=== PATIENT | female | born 2000 | race Caucasian/White ===

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

== ENCOUNTER 2024-10-19 05:27 | Inpatient (IN) ==
--- NOTE | 2024-10-07 13:12 | Anesthesiology Consultation ---
Date of Service October 07, 2024 Assessment & Plan Chart Review Chart Review: Acceptable Risk for Surgery and Patient NOT seen in Pre Admission Testing Infectious Disease screening: Per PAT nursing assessment on 10/07/24, No known infectious disease contacts in past 10 days or current infectious disease symptoms. No recent travel outside the country. History Surgery Operation Date: 10/19/24 07:30 Proposed Procedures p Section (Delivery of Baby Through Abdominal Incision) - Evelyn Savage MD Height/Weight Height: 5 ft 5 in Weight: 98.43 kg Allergies Allergy/AdvReac Type Severity Reaction Status Date / Time No Known Drug Allergies Allergy Verified 10/07/24 12:27 Medications Home Medications Medication Instructions Recorded Confirmed Last Taken famotidine 40 mg tablet 40 mg PO DAILY 07/04/24 10/07/24 07/04/24 vit no.133-ferrous 1 tab PO QAM 07/04/24 10/07/24 07/04/24 fumarate 28 mg-folic acid 800 mcg tablet () ondansetron 4 mg disintegrating 4 mg PO Q6H PRN nausea and 07/05/24 10/07/24 Unknown tablet vomiting #14 tabs acetone (urine) test (Ketone Urine #50 ea 08/27/24 10/07/24 Unknown Test strips) blood sugar diagnostic (OneTouch #150 ea 08/27/24 10/07/24 Unknown Verio test strips) blood-glucose meter (OneTouch #1 ea 08/27/24 10/07/24 Unknown Verio Reflect Meter) lancets 33 gauge (OneTouch Delica #150 ea 08/27/24 10/07/24 Unknown Plus Lancet) pen needle, diabetic 32 gauge x #100 ea 09/14/24 10/07/24 Unknown /32" (BD Ultra-Fine Dolly Pen Needle) insulin NPH isoph U-100 human 100 22 unit subcut .at bed time 10/07/24 10/07/24 Unknown unit/mL (3 mL) subcutaneous pen (Novolin N FlexPen) omeprazole magnesium 20 mg 20 mg PO QAM 10/07/24 10/07/24 Unknown tablet,delayed release (Prilosec OTC) valacyclovir 1 gram tablet 1,000 mg PO QAM 10/07/24 10/07/24 Unknown (Valtrex) Past Medical History Medical History (Updated 10/07/24 @ 13:08 by Carolina Hensley PA-C) Acne Generalized anxiety disorder no longer on meds Genital herpes GERD (gastroesophageal reflux disease) Gestational diabetes using insulin Polyhydramnios affecting per pt, last US was normal > mild Varicella vaccination Past Family History Family History Mother No problems noted. Grandfather (Paternal) Hypertension Grandmother (Maternal) FH: kidney cancer Denies family history of Ovarian cancer Breast cancer Colorectal cancer Past Surgical History Surgical History H/O wisdom tooth extraction Social History Smoking Status: Former smoker tobacco type: e-cigarettes Do You Dip or Chew Tobacco: No Smoking End Date: within 9 mos Hx Alcohol Use: No Hx Substance Use: No substance use type: does not use
--- NOTE | 2024-10-16 13:29 | History & Physical Report ---
Date of Service October 16, 2024 Assessment & Plan (1) Insulin controlled gestational diabetes mellitus (GDM) during : (2) Polyhydramnios affecting in third trimester: (3) Supervision of normal first : (4) Genital herpes: Plan -reviewed last growth US, projects out to >4500g currently so would offer elective CS and pt desires to proceed, understanding limitations of US -Discussed indications, risks, benefits, alternatives with risks including infection, bleeding, injury to adjacent structures (bowel, bladder, ureters, blood vessels, nerves, baby), possible need for blood transfusion and/or life saving hysterectomy, VTE. Consent reviewed in detail w/ pt and signed after all questions answered to her satisfaction. History of Present Illness Chief Complaint: preop Primary Care Provider: Marifer Meyer MD 24 yo G1 at 39 wga presents for preop to planned primary CS for suspected LGA. 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 regular cycles hx HSV Allergies Allergy/AdvReac Type Severity Reaction Status Date / Time No Known Drug Allergies Allergy Verified 10/16/24 10:13 Home Medications Medication Instructions Recorded Confirmed Type famotidine 40 mg tablet 40 mg PO DAILY 07/04/24 10/16/24 History vit no.133-ferrous 1 tab PO QAM 07/04/24 10/16/24 History fumarate 28 mg-folic acid 800 mcg tablet () ondansetron 4 mg disintegrating 4 mg PO Q6H PRN nausea and 07/05/24 10/16/24 Rx tablet vomiting #14 tabs acetone (urine) test (Ketone Urine #50 ea 08/27/24 10/16/24 Rx Test strips) blood sugar diagnostic (OneTouch #150 ea 08/27/24 10/16/24 Rx Verio test strips) blood-glucose meter (OneTouch #1 ea 08/27/24 10/16/24 Rx Verio Reflect Meter) lancets 33 gauge (OneTouch Delica #150 ea 08/27/24 10/16/24 Rx Plus Lancet) pen needle, diabetic 32 gauge x #100 ea 09/14/24 10/16/24 Rx 5/32" (BD Ultra-Fine Dolly Pen Needle) insulin NPH isoph U-100 human 100 22 unit subcut .at bed time 10/07/24 10/16/24 History unit/mL (3 mL) subcutaneous pen (Novolin N FlexPen) omeprazole magnesium 20 mg 20 mg PO QAM 10/07/24 10/16/24 History tablet,delayed release (Prilosec OTC) valacyclovir 1 gram tablet 1,000 mg PO QAM 10/07/24 10/16/24 History (Valtrex) Patient History Medical History (Updated 10/07/24 @ 13:08 by Carolina Hensley PA-C) GERD (gastroesophageal reflux disease) Genital herpes Polyhydramnios affecting per pt, last US was normal > mild Gestational diabetes using insulin Varicella vaccination Generalized anxiety disorder no longer on meds Acne Surgical History H/O wisdom tooth extraction Family History Mother No problems noted. Grandfather (Paternal) Hypertension Grandmother (Maternal) FH: kidney cancer Denies family history of Ovarian cancer Breast cancer Colorectal cancer Social History Smoking Status: Former smoker Tobacco Type: Cigarettes Second Hand Exposure: No; Do You Dip or Chew Tobacco: No; Hx Alcohol Use: No Hx Substance Use: No Preferred Language: [place] Communication Ability: Effective Policy Officer Required: No Beliefs That Will Affect Care: None marital status: Single marital status details: Romero Maguire (24) [phone] Current Living Situation: Significant Other Current Living Situation Comment: lives with Fob, dogs, cats-FOB changing litter current occupational status: employed current occupation: [employer] Feels Safe at Home: Yes Assistive Devices: None Physical Exam Respiratory: normal respiratory effort, lungs clear to auscultation Genitourinary: NST reactive, DVP 9 Results & Data Laboratory Results OB Labs: Blood Type O Positive 03/20/24 Antibody Screen NEGATIVE 03/20/24 Hgb 11.2 g/dl (12.0-16.0) L 07/31/24 Hct 33.7 % (37.0-47.0) L 07/31/24 MCV 83.4 fL (80.0-100.0) 07/04/24 Plt Count 188 K/uL (130-400) 07/04/24 Rubella IgG Antibody Immune (Immune) 03/20/24 Treponema pallidum Ab Negative (Negative) 07/31/24 Hep Bs Antigen Negative (Negative) 03/20/24 Hepatitis C Antibody Negative (Negative) 03/20/24 HIV 1&2 Ab/P24 Ag 4thGn Negative (Negative) 03/20/24 Glucose 1 Hr 50 gm 155 mg/dl (70-130) H 07/31/24 OB Optional Labs: Chlamydia trachomatis RNA Not Detected (NotDetected) 03/20/24 Neisseria gonorrhoeae RNA Not Detected (NotDetected) 03/20/24 Labs Reviewed: Declines genetics--mln Diagnostic Findings 10/02 EFW 4308g, ant plac Coding Level of Care Code None Diagnoses Insulin controlled gestational diabetes mellitus (GDM) during O24.414 Polyhydramnios affecting in third trimester O40.3XX0 Supervision of normal first Z34.00 Genital herpes A60.00
[2024-10-19 06:02] LABS: Basophils # (auto) 0.02 K/uL (0.00-0.20); Basophils % (auto) 0.2 %; Eosinophils # (auto) 0.04 K/uL (0.00-0.50); Eosinophils % (auto) 0.5 %; Hemoglobin 10.3 g/dl (12.0-16.0); Immature Granulocytes # (auto) 0.13 K/uL (0.01-0.20); Immature Granulocytes % (auto) 1.6 %; Lymphocytes # (auto) 1.39 K/uL (1.20-3.40); Lymphocytes % (auto) 17.1 %; Mean Corpuscular Hemoglobin 23.5 pg (25.0-34.0); Mean Corpuscular Hgb Conc 31.2 g/dL (32.0-36.0); Mean Corpuscular Volume 75.3 fL (80.0-100.0); Mean Platelet Volume 9.7 fL (9.4-12.4); Monocytes # (auto) 0.84 K/uL (0.11-0.59); Monocytes % (auto) 10.3 %; Neutrophils # (auto) 5.71 K/uL (1.40-6.50); Neutrophils % (auto) 70.3 %; Platelet Count 165 K/uL (130-400); RDW Coefficient of Variation 16.1 % (11.5-14.5); RDW Standard Deviation 44.1 fL (36.4-46.3); Red Blood Count 4.38 M/uL (4.20-5.40); White Blood Count 8.13 K/ul (4.8-10.8)
[2024-10-19] MEDS: LACTATED RINGER'S 1,000 ML IV SCH (06:04)
[2024-10-19] MEDS ORDERED: SODIUM CHLORIDE 0.9% 50 ML IV PRN (06:30)
[2024-10-19] MEDS ORDERED: SODIUM CHLORIDE 0.9% 100 ML IV PRN (06:30)
[2024-10-19] MEDS: ACETAMINOPHEN 500 MG TAB PO SCH (06:33)
[2024-10-19] MEDS ORDERED: OXYTOCIN 10 UNITS/ML VIAL ONE (06:47)
[2024-10-19] MEDS ORDERED: PHENYLEPHRINE 100MCG/ML 5ML SYR ONE (06:47)
[2024-10-19] MEDS ORDERED: PHENYLEPHRINE HCL 25 MG/250 ML NSS IV ONE (06:47)
[2024-10-19] MEDS ORDERED: ONDANSETRON INJ 2 MG/ML 2 ML VIAL ONE (06:50)
[2024-10-19] MEDS ORDERED: DEXAMETHASONE SOD INJ 4 MG/ML VIAL ONE (06:50)
[2024-10-19] MEDS ORDERED: fentaNYL citrate PF 100 MCG/2 ML VIAL ONE (06:52)
[2024-10-19] MEDS ORDERED: MoRPHine SULFATE PF 1 MG/ML 10 ML AMP/VIAL ONE (06:52)
[2024-10-19] MEDS: CITRIC ACID/SODIUM CITRATE 15 ML UDC PO SCH (07:11)
--- NOTE | 2024-10-19 07:25 | History & Physical Bridge Note ---
Date of Service October 19, 2024 History & Physical Bridge Note I have examined the patient, reviewed the History & Physical and in the interval since the performance of the History & Physical I have noted the following changes of clinical significance: no changes noted
[2024-10-19] MEDS: ceFAZolin 3,000 MG/72.5 ML BAG IV SCH (07:30)
[2024-10-19] MEDS ORDERED: diphenhydrAMINE 50 MG/ML VIAL ONE (07:37)
[2024-10-19] MEDS ORDERED: NALOXONE HCL 0.4 MG/1 ML VIAL/CARP IV PRN (08:17)
[2024-10-19] MEDS ORDERED: ONDANSETRON INJ 2 MG/ML 2 ML VIAL IV PRN ×2 (08:17→09:27)
[2024-10-19] MEDS ORDERED: NALOXONE HCL 1 MG in SODIUM CHLORIDE 0.9% 1,000 ML IV PRN (08:17)
[2024-10-19] MEDS ORDERED: oxyCODONE HCL IR 5 MG TAB (IMMEDIATE RELEASE) PO PRN ×2 (08:17→09:27)
[2024-10-19] MEDS ORDERED: ePHEDrine sulfate 50 MG/ML AMP IV PRN (08:17)
[2024-10-19] MEDS ORDERED: NALOXONE HCL 0.08 MG in SYRINGE 1.8 ML IV PRN (08:17)
[2024-10-19] MEDS ORDERED: PROMETHAZINE 6.25 MG/50.25 ML BAG IV PRN (08:17)
[2024-10-19] MEDS ORDERED: NO NARCOTICS OR SEDATIVES SCH (08:30)
[2024-10-19] MEDS ORDERED: DC INTRASPINAL MORPHINE SCH (08:30)
--- NOTE | 2024-10-19 08:54 | Post Operative Brief Note ---
Immediate Post Op Note Date of Surgery October 19, 2024 Pre & Post Diagnosis Operation Date: 10/19/24 07:30 Pre-Op Diagnosis: 1. IUP at 39 Weeks 2. Suspected LGA 3. GDM - Insulin Post-Op Diagnosis: Same I identified the patient and participated in the time-out.: Yes Procedure Operation Date: 10/19/24 07:30 Actual Procedures p Section in LD; Primary Lower Uterine Transverse Section for the of a live girl infant at 0810. (Bilateral) - Evelyn Savage MD Surgeon Evelyn Savage MD Television Reporter MD [place] Quantitative Blood Loss (QBL) 743 Findings Consistent with Post-Op Diagnosis Normal appearing uterus, bilateral fallopian tubes and ovaries. Viable female weighing 10lbs 3oz, APGARs 8 and 8 at 1 and 5 minutes, respectively Fluids Cancino draining clear urine Specimens Specimen Description: 1. Placenta: Hold 2. Cord Blood Obtained Drains Cancino Catheter (Catheter inserted without diffivulty by SANJAY Nance with assistance. Patent and draining clear yellow urine. ) Anesthesia Type Spinal Complications none Disposition Accompanied Patient To Recovery: Yes Disposition: L&D
[2024-10-19] MEDS: OXYTOCIN 20 UNITS/LR 1,002 ML IV SCH (09:00)
--- NOTE | 2024-10-19 09:00 | Anesthesiology Progress Note ---
Date of Service October 19, 2024 Anesthesia Post Procedure Vital Signs Vital Signs: Temp Pulse Resp BP Pulse Ox 10/19/24 08:56 82 144/56 H 10/19/24 08:55 94 H 100 10/19/24 05:37 36.8 C 110 H 18 144/89 H 10/19/24 05:36 110 H 144/89 H Transfer of Care Handoff Completed per policy Notes Mental Status: alert / awake / arousable and participated in evaluation Patient Amnestic to Procedure: No Nausea / Vomiting: adequately controlled Pain: adequately controlled Airway Patency, RR, SpO2: stable & adequate BP & HR: stable & adequate Hydration State: stable & adequate Neuraxial Anesthesia: was administered and sensory block is resolving Anesthetic Complications: no major complications apparent and Pt Satisfied with anesthetic care
[2024-10-19] MEDS ORDERED: SODIUM CHLORIDE 0.9% 1,000 ML IV SCH (09:27)
[2024-10-19] MEDS ORDERED: diphenhydrAMINE 50 MG/ML VIAL IV PRN (09:27)
[2024-10-19] MEDS ORDERED: MAGNESIUM HYDROXIDE SUSP 30 ML UDC PO PRN (09:27)
[2024-10-19] MEDS ORDERED: LACTATED RINGER'S 1,000 ML IV SCH (09:27)
[2024-10-19] MEDS ORDERED: HYDROCORTISONE ACETATE 25 MG SUPP PR PRN (09:27)
[2024-10-19] MEDS ORDERED: diphenhydrAMINE Capsule 25 MG CAP PO PRN (09:27)
[2024-10-19] MEDS ORDERED: HYDROmorphone INJ 0.5 MG/0.5 ML SYR IV PRN (09:27)
[2024-10-19] MEDS ORDERED: CALCIUM CARBONATE 500 MG CHEWABLE TAB PO PRN (09:27)
[2024-10-19] MEDS ORDERED: PROMETHAZINE 12.5 MG/50.5 ML BAG IV PRN (09:27)
[2024-10-19] MEDS ORDERED: SENNA 8.6 MG TAB PO PRN (09:27)
[2024-10-19] MEDS ORDERED: BENZOCAINE 20% SPRY 85 APPLN/85 GM CAN EXT PRN (09:27)
--- NOTE | 2024-10-19 09:40 | Operative Report ---
Post Operative Report Pre & Post Diagnosis Operation Date: 10/19/24 07:30 Pre-Op Diagnosis: 1. IUP at 39 Weeks 2. Suspected LGA 3. GDM - Insulin 4. Polyhydramnios Post-Op Diagnosis: Same I identified the patient and participated in the time-out.: Yes Procedure Operation Date: 10/19/24 07:30 Actual Procedures p Section in LD; Primary Lower Uterine Transverse Section for the of a live girl infant at 0810. (Bilateral) - Evelyn Savage MD Surgeon Evelyn Savage MD Gusset Ripper MD T[place] Quantitative Blood Loss (QBL) 743 Findings Consistent with Post-Op Diagnosis Normal appearing uterus, bilateral fallopian tubes and ovaries. Viable female weighing 10lbs 3oz, APGARs 8 and 8 at 1 and 5 minutes, respectively Specimens 1. Placenta: Hold 2. Cord Blood Obtained Drains Cancino draining clear urine Anesthesia Type Spinal Complications none Disposition Accompanied Patient To Recovery: Yes Disposition: L&D Indications 24 yo G1 at 39+ wga presents for planned elective primary CS due to suspected LGA >4500g at 39 wks in the setting of A2GDM, polyhydramnios Description of Procedure The patient was taken to the operating room after consents were ensured. The patient was properly identified. Spinal anesthesia was obtained without difficulty. The patient was placed in a dorsal supine position with left lateral tilt, then prepped and draped in normal sterile fashion. Surgical time out was performed. Antibiotics were given for prophylaxis. Anesthesia was tested to ensure adequate surgical levels. Pfannenstiel skin incision was performed and carried down to the underlying fascia with a knife. The fascia was then nicked in the midline and extended laterally with pickups and Pierre scissors. Superior portion of the fascia was grasped with Kochers x2 and elevated off the underlying rectus muscles using blunt dissection. Inferior portion of the fascia was then grasped with Kary clamps x2 and also elevated off the underlying muscles with blunt dissection. Midline was identified. The peritoneum was then entered and extended to provide adequate room for delivery of baby. A hand was inserted into the abdomen, uterus was noted to be clear of adhesions. Bladder blade was inserted, bladder flap was created in the usual fashion. A low transverse uterine incision was made in the uterus and extended bluntly in a superior to inferior fashion. Amniotomy was made with clear fluid at the time of rupture. head was grasped and elevate d to the hysterotomy in an atraumatic fashion, however could not be delivered through. Vacuum was called for and applied to the flexion point with care to avoid entrapping maternal tissue. Vacuum increased to green zone and with one pull, head delivered atraumatically in ANNE position, no nuchal cord. Vacuum was removed. Remainder of the body delivered without incident. Nose and mouth were bulb suctioned on the surgical field. The cord was double clamped and cut, baby was handed off to awaiting pediatrics staff. Cord segment and blood were obtained. Placenta was then expressed from the uterus. The uterus was exteriorized. Several passes were made inside the uterus to remove the remaining membranes. Attention was then turned to the hysterotomy, which was then closed with a running locked suture of 0 Vicryl on a CTX needle. An imbricating layer was then performed using 0-Monocryl. There was noted to be good hemostasis. The posterior cul-de-sac was then inspected and cleaned of clot and debris. The hysterotomy was again inspected and noted to be hemostatic. The uterus was returned to the abdomen. The right and left pericolic gutters were cleaned of all clot and debris. The hysterotomy was again noted to be hemostatic. Space of Retzius was noted to be hemostatic. The fascia was then closed with a running suture of 0 Vicryl on a CT1 needle. Subcutaneous tissue was copiously irrigated and noted to be hemostatic. Subcutaneous tissue was re-approximated using 2-0 plain gut. The skin was then closed with a running suture of 3-0 Monocryl in a subcuticular fashion. At termination of the procedure, fundal pressure was applied and a moderate amount of lochia was expressed. Pressure dressing was applied to the patient. She tolerated the procedure well. All sponge, needle, instrument counts were correct x 2. I attest to the content of the Intraoperative Record and any orders documented therein. Any exceptions are noted below. OB Procedure Charges 27227
[2024-10-19] MEDS: KETOROLAC 30 MG/ML VIAL IV SCH (09:50)
[2024-10-19] MEDS: HYDROmorphone INJ 0.5 MG/0.5 ML SYR IV PRN (10:58)
[2024-10-19] MEDS: MoRPHine SULFATE PF 1 MG/ML 10 ML AMP/VIAL INT SPINAL ONE (11:02)
[2024-10-19] MEDS: DIPHTHER/TETAN/PERTUS Vaccine (Tdap, Adol/Adult) 0.5mL IM ONE (11:03)
[2024-10-19] MEDS: SIMETHICONE 80 MG CHEW PO SCH (12:55)
[2024-10-19] MEDS: ACETAMINOPHEN 325 MG TAB PO SCH (15:56)
[2024-10-19] MEDS: diphenhydrAMINE 50 MG/ML VIAL IV PRN (15:57)
[2024-10-19] MEDS: NALBUPHINE HCL INJ 10 MG/ML AMP IV PRN (17:23)
[2024-10-19] MEDS: DOCUSATE SODIUM 100 MG CAP PO SCH (20:53)
[2024-10-20] MEDS ORDERED: HYDROmorphone INJ 0.5 MG/0.5 ML SYR IV PRN (02:17)
[2024-10-20] MEDS ORDERED: diphenhydrAMINE Capsule 25 MG CAP PO PRN (02:17)
[2024-10-20] MEDS ORDERED: diphenhydrAMINE 50 MG/ML VIAL IV PRN (02:17)
[2024-10-20] MEDS ORDERED: ONDANSETRON INJ 2 MG/ML 2 ML VIAL IV PRN (02:17)
[2024-10-20] MEDS ORDERED: PROMETHAZINE 12.5 MG/50.5 ML BAG IV PRN (02:17)
--- NOTE | 2024-10-20 07:14 | Obstetrical Progress Note ---
Date of Service October 20, 2024 Assessment & Plan (1) state: Plan: 24yo ppd 1 s/p for macrosomia Feeling well today, VSS Continue care Encourage ambulation and bottle feeds as tolerated D/c in the next few days Followup with Dr. Robertson in 6wks Admission and Anticipated Discharge Date Admission Date: October 19, 2024 Supervising Physician Co-Signing Physician Notes Resident Physician Supervision Note: I interviewed and examined the patient. Discussed with Dr. Salgado and agree with findings and plan as documented in the note. Any exceptions or clarifications are listed here: POD1 s/p pLTCS, doing well. VSS, exam benign. Dressing c/d/i. Continue routine care Documented By: Evelyn Savage MD Subjective 24yo ppd 1 s/p for macrosomia Ambulation: ambulating normally Voiding: urinating, no BM yet Passing Gas: no Diet Tolerance: regular Lochia: Small Feeding Type: breast and bottle, no concerns at this time doing well this morning- feeling sore but otherwise denies any symptoms of lightheadedness, dizziness, palpitations Physical Exam Physical Exam: Constitutional: WD/WN, vitals as above Psychiatric: A&Ox3, euthymic GI/abd: low-transverse incision scar healing well with no erythema or swelling, no significant tenderness to palpation, numbness of skin around scar - +BS, fundus firm 1fw+ umbilicus Ext: no LE edema, calves nontender to palpation, wiggles toes Results & Data Vital Signs (Past 12 Hours) Vital Signs Temp Pulse Resp BP Pulse Ox O2 Del Method 10/20/24 03:05 36.7 C 94 H 16 115/75 97 Room Air 10/20/24 02:00 18 98 10/20/24 01:00 16 96 10/20/24 00:19 18 100 10/20/24 00:19 36.6 C 84 18 115/78 100 Room Air 10/19/24 23:05 16 96 10/19/24 22:08 18 98 10/19/24 21:00 18 96 10/19/24 20:00 20 98 10/19/24 19:50 18 100 10/19/24 19:50 36.8 C 78 18 115/74 100 Room Air Resident Activity Tracking Resident Involvement: Resident Care Provided Care Provided: OB Delivery
[2024-10-20 07:27] LABS: Basophils # (auto) 0.03 K/uL (0.00-0.20); Basophils % (auto) 0.3 %; Eosinophils % (auto) 1.1 %; Hematocrit (blood only) 26.4 % (37.0-47.0); Immature Granulocytes # (auto) 0.13 K/uL (0.01-0.20); Immature Granulocytes % (auto) 1.4 %; Lymphocytes # (auto) 1.65 K/uL (1.20-3.40); Mean Corpuscular Hemoglobin 23.1 pg (25.0-34.0); Mean Corpuscular Hgb Conc 30.3 g/dL (32.0-36.0); Mean Corpuscular Volume 76.1 fL (80.0-100.0); Mean Platelet Volume 11.4 fL (9.4-12.4); Monocytes # (auto) 1.19 K/uL (0.11-0.59); Neutrophils # (auto) 6.06 K/uL (1.40-6.50); Neutrophils % (auto) 66.2 %; Platelet Count 146 K/uL (130-400); RDW Coefficient of Variation 16.1 % (11.5-14.5); Red Blood Count 3.47 M/uL (4.20-5.40); White Blood Count 9.16 K/ul (4.8-10.8)
[2024-10-20] MEDS: FERROUS SULFATE 325 MG TAB PO SCH (08:31)
[2024-10-20] MEDS: PRENATAL VITAMIN 1 TAB PO SCH (08:31)
[2024-10-20] MEDS ORDERED: KETOROLAC 30 MG/ML VIAL IV PRN (08:50)
[2024-10-20] MEDS: IBUPROFEN 600 MG TAB PO SCH (09:09)
[2024-10-20] MEDS: oxyCODONE HCL IR 5 MG TAB (IMMEDIATE RELEASE) PO PRN (11:48)
[2024-10-20 16:31] VITALS: O2SAT 99
[2024-10-20] MEDS: bisacodyL 5 MG TABEC PO SCH (20:45)
[2024-10-20 23:26] VITALS: RESP 16
[2024-10-21 06:40] LABS: Hematocrit (blood only) 28.1 % (37.0-47.0); Hemoglobin 8.6 g/dl (12.0-16.0)
--- NOTE | 2024-10-21 07:11 | Obstetrical Progress Note ---
Date of Service October 21, 2024 Assessment & Plan (1) state: All questions were answered incision was inspected and found to be clean dry and intact extremity exam was negative for tenderness patient has no significant depressive symptoms Postoperative from section patient meets discharge criteria as she is ambulating well tolerating an oral diet has minimal bleeding and no extremity pain. Discharge instructions were reviewed and prescriptions were sent to her pharmacy of choice patient advised to call with any concerns and follow-up in the office discussed. Subjective Ambulation: ambulating normally Voiding: no voiding problems Passing Gas:: Yes Diet Tolerance:: regular diet Lochia:: Small Physical Exam Constitutional WD/WN, vitals as above well developed and well nourished Respiratory normal respiratory effort, lungs clear to auscultation normal respiratory effort Cardiovascular RRR, no murmur, no edema Gastrointestinal (Abdomen) normal bowel sounds, soft, nontender, no hepatosplenomegaly Results & Data Vital Signs (Past 12 Hours) Vital Signs Temp Pulse Resp BP O2 Del Method 10/20/24 23:23 97.7 F 85 16 142/91 H Room Air 10/20/24 20:05 97.3 F L 96 H 14 146/93 H Room Air
[2024-10-21 07:41] VITALS: BP 132/84; PULSE 84; TEMP 97.5
[2024-10-21] MEDS ORDERED: bisacodyL 10 MG SUPP PR PRN (08:50)
[2024-10-21] MEDS ORDERED: IBUPROFEN 600 MG TAB PO PRN (08:50)
[2024-10-21] MEDS ORDERED: ACETAMINOPHEN 325 MG TAB PO PRN (14:50)
--- NOTE | 2024-10-22 15:32 | Discharge Summary ---
Date of Service October 22, 2024 Admission HPI Per Admitting Provider 24 yo G1 at 39 wga presents for preop to planned primary CS for suspected LGA. 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 (Bilateral) - Evelyn Savage MD Hospital Course (1) Insulin controlled gestational diabetes mellitus (GDM) during : (2) Polyhydramnios affecting in third trimester: Plan See operative report for details. Postoperative course uncomplicated and she was discharged home on POD2 Coding Level of Care Code None Diagnoses Insulin controlled gestational diabetes mellitus (GDM) during O24.414 Polyhydramnios affecting in third trimester O40.3XX0
== END 2024-10-21 12:30 | disposition home or self-care (01) | DRG 787 ==
LOC: 4S1 05:27 → EDSTATUS 07:30 → 4E2 11:29
DX: Z79.4 Long term (current) use of insulin; A60.09 Herpesviral infection of other urogenital tract; Z87.891 Personal history of nicotine dependence; Z37.0 Single live birth; O24.424 Gestational diabetes mellitus in childbirth, insulin controlled; O98.32 Other infections with a predominantly sexual mode of transmission complicating childbirth; O40.3XX0 Polyhydramnios, third trimester, not applicable or unspecified; O99.62 Diseases of the digestive system complicating childbirth; O36.63X0 Maternal care for excessive fetal growth, third trimester, not applicable or unspecified; Z3A.39 39 weeks gestation of pregnancy; K21.9 Gastro-esophageal reflux disease without esophagitis; Z79.899 Other long term (current) drug therapy